=== PATIENT | male | born 1950 | race Caucasian/White ===

== ENCOUNTER → 2016-12-03 | Day surgery (SDC) | payer MEDICARE ==
[~2016-12-03] VITALS: Ht 172.7 cm; Wt 92.9 kg
[~2016-12-03] MED LIST: COQ-10100 MG PO; COREG25 MG PO; DITROPAN5 MG PO; ELAVIL25 MG PO; FISH OIL 1,0001 EACH PO; GLUCOPHAGE1000 MG PO; GLUCOTROL5 MG PO; HYTRIN UD5 MG PO; KEFLEX500 MG PO; LEVOTHROID (SY50 MCG PO; LIPITOR80 MG PO; LISINOPRIL-HCT1 EAC2 PO; MEPHYTON (VITAMI5 MG PO; PROSCAR5 MG PO
--- NOTE | ~2016-12-03 | HP ---
PATIENT'S NAME: SHANIKA CUEVAS [facility] AGE: 66 Y [address] ROOM: [place] [address] LOCATION: [facility] [place] ADMIT DATE: 12/03/2016 History & Physical DISCHARGE DATE: FAMILY PHYSICIAN: Mikey Simpson PA-C ATTENDING PHYSICIAN: Zaki Mcguire DATE OF SERVICE: HISTORY: A 66-year-old male, who basically has been followed at the [facility] for a rising PSA. I saw him first time on November 12, 2016 for a second opinion. In 2014, his PSA was 10. It was repeated and it was 10.9. Then in November 2015, it had increased to 13 and in October 2016, it was 25. He has a past history of having prostate biopsies in 2009 and 2014, which showed malignancy. He was in [place] from 1967 to 1968. He was in the [facility] area and he was exposed to Agent [place]well. He also has a family history of cancer of the prostate in that his father had cancer of the prostate. He has had progressively voiding symptoms with frequency, difficulty voiding, hesitancy for the past several years and he has been on finasteride for several years, was recently started on Ditropan. A 4Kscore was done when he was in the office and his 4Kscore was 90% placing him in the high risk group with a 10% probability that he will not have aggressive cancer of the prostate. He is seen now for saturation biopsies of the prostate under sedation. He was born in [place] in [place], raised in a [place] area and was a certified welder by trade. He is retired. He does have a cardiac pacemaker which is not compatible with an MRI. PAST MEDICAL HISTORY: Illnesses: Cardiac arrhythmia, hypertension mild. Operations: As above. ALLERGIES: PENICILLIN AND CIPRO. PHYSICAL EXAMINATION: PATIENT'S NAME: SHANIKA CUEVAS [facility] AGE: 66 Y [address] ROOM: [place] [address] LOCATION: [facility] [place] ADMIT DATE: 12/03/2016 History & Physical DISCHARGE DATE: FAMILY PHYSICIAN: Mikey Simpson PA-C ATTENDING PHYSICIAN: Zaki Mcguire GENERAL: A well-developed, well-nourished, alert male. CHEST: Clear. HEART: Normal sinus rhythm. ABDOMEN: Soft with no palpable masses. : Normal penis and testicles. Prostate is slightly enlarged, smooth, symmetrical, and benign. RECTAL: Negative. IMPRESSION: 1. Elevated prostate-specific antigen. 2. High risk 4Kscore. 3. Exposure to Agent [place]well. 4. Family history of cancer of the prostate. PLAN: As above. MD ANIVAL ALLRED/sarah /[id number] D: [id number] T: [id number] HISTORY & PHYSICAL
--- NOTE | ~2016-12-03 | OR ---
PATIENT'S NAME: SHANIKA CUEVAS [facility] AGE: 66 Y [address] ROOM: [place] [address] LOCATION: [facility] [place] ADMIT DATE: 12/03/2016 OR/Procedure Report DISCHARGE DATE: FAMILY PHYSICIAN: Lee Gomez MD ATTENDING PHYSICIAN: Chrissy Mcguire SURGEON: Chrissy Mcguire MD FACILITIES FLIGHT CHECK PILOT: DATE OF PROCEDURE: 12/03/2016 PREOPERATIVE DIAGNOSIS: Elevated prostate-specific antigen. POSTOPERATIVE DIAGNOSIS: Elevated prostate-specific antigen. PROCEDURE: Transrectal ultrasound study of the prostate with biopsy. DESCRIPTION OF PROCEDURE: The patient was seen in the outpatient department and given IV sedation by the Anesthesia Department. Then, a prostatic ultrasound study was done and multiple biopsies were taken from both the right and left side. He tolerated the procedure fine. We will notify him as to the results of the biopsy. CHRISSY MCGUIRE MD EKL/modl /[id number] d: 12/05/16 0802 t: 12/09/16 0433, OPERATIVE SUMMARY
== END | disposition disaster alternative care site (69) ==
LOC: GPOC 11-28 13:00 → GSDC 06:23
PROC: 0VB Male Reproductive System, Excision (ICD-10-PCS; principal; 2016-12-03)
DX: C61 Malignant neoplasm of prostate (principal); M19.90 Unspecified osteoarthritis, unspecified site; E11.9 Type 2 diabetes mellitus without complications; F32.9 Major depressive disorder, single episode, unspecified; E78.00 Pure hypercholesterolemia, unspecified; I10 Essential (primary) hypertension; Z98.890 Other specified postprocedural states; Z79.899 Other long term (current) drug therapy; Z88.0 Allergy status to penicillin; Z88.1 Allergy status to other antibiotic agents; Z88.8 Allergy status to other drugs, medicaments and biological substances
CPT/HCPCS: J0713; J2001; J7030; J7040

== ENCOUNTER → 2016-12-10 | Outpatient (CLI) | payer MEDICARE | END | disposition disaster alternative care site (69) | LOC: GRAD 09:32 | DX: C61 Malignant neoplasm of prostate (principal); C79.51 Secondary malignant neoplasm of bone; R93.7 Abnormal findings on diagnostic imaging of other parts of musculoskeletal system | CPT/HCPCS: A9503 ==